=== PATIENT | female | born 1990 | race Caucasian/White ===

== ENCOUNTER 2019-11-15 19:37 | Emergency (ER) | payer MEDICAID, OTHER ==
[~2019-11-15] VITALS: Ht 172.7 cm; Wt 74.8 kg
[2019-11-15 19:54] VITALS: BP_SYST 150
--- NOTE | 2019-11-15 20:00 | NUR ---
Patient to ER bed H1 to gown for evaluation. Side rails up.
--- NOTE | 2019-11-15 20:02 | NUR ---
Patient came from home. C/O right foot pain x today (~20 mins [employer]) Patient states "book shelf fell off right foot. " A/O,X4, right toe nail Nail detaching from nail bed, bleeding control, pain rate 11/26, vss.
--- NOTE | 2019-11-15 20:09 | NUR ---
ER Dr. Leyva at bedside examining patient.
[2019-11-15] MEDS ORDERED: ACETAMINOPHEN 500 MG TABLET PO ONE (20:15)
[2019-11-15] MEDS ORDERED: LIDOCAINE 1% 10 MG/ML, 20 ML MDV INJ ONE (21:00)
--- NOTE | 2019-11-15 21:11 | NUR ---
Dr. Leyva removed toe nail with sterile technique. Patient tolerated well.
[2019-11-15 21:38] VITALS: BP_SYST 145
--- NOTE | 2019-11-15 21:38 | NUR ---
Patient given written and verbal discharge instructions and verbalizes understanding. ER MD discussed with patient the results and treatment provided. Patient in stable condition. ID arm band removed. Rx of Motrin given. Patient educated on pain management and to follow up with PMD. Pain Scale 1/10. Opportunity for questions provided and answered. Medication side effect fact sheet provided.
== END 2019-11-15 21:38 | disposition home or self-care (01) ==
LOC: SED 19:37
DX: S91.201A Unspecified open wound of right great toe with damage to nail, initial encounter (principal); W22.8XXA Striking against or struck by other objects, initial encounter; Y93.89 Activity, other specified; Y92.89 Other specified places as the place of occurrence of the external cause; Y99.8 Other external cause status
CPT/HCPCS: 99284